=== PATIENT | male | born 1985 | race Two or more races ===

== ENCOUNTER 2020-10-09 15:14 | Emergency (ER) | payer SELFPAY ==
[~2020-10-09] VITALS: Ht 182.9 cm; Wt 127.7 kg
[2020-10-09 15:31] VITALS: BP 153/95
[2020-10-09] MEDS ORDERED: LIDOCAINE 1%/EPI 1:100,000 20 ML VIAL. INJ ONE (16:00)
[2020-10-09] MEDS ORDERED: DIPH,PERTUSS(ACELL),TET VAC/PF 0.5 ML SYRINGE. VAX IM ONE (16:00)
--- NOTE | 2020-10-09 17:47 | PHYS DOC ---
Past Medical History Past Surgical History: No Surgical History (BONI GARDNER APRN) Smoking Status: Current Every Day Smoker Alcohol Use: None (BONI GARDNER APRN) General Adult EDM: Chief Complaint: LACERATION/AVULSION HPI: HPI: Patient is a 34 year old male who presents to the ED today complaining of right knee laceration, patient states he was working in the basement and cut his right knee on a piece of metal. 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 [] Musculoskeletal: Denies back pain or joint pain. [] Integument: Reports right knee laceration Neurologic: Denies headache, focal weakness or sensory changes. [] Psychiatric: Denies depression or anxiety. [] (BONI GARDNER APRN) Heart Score: C/O Chest Pain: N/A Risk Factors: Risk Factors: DM, Current or recent (<one month) smoker, HTN, HLP, family history of CAD, obesity. Risk Scores: Score 0 - 3: 2.5% MACE over next 6 weeks - Discharge Home Score 4 - 6: 20.3% MACE over next 6 weeks - Admit for Clinical Observation Score 7 - 10: 72.7% MACE over next 6 weeks - Early Invasive Strategies (BONI GARDNER APRN) Current Medications: Current Medications Medications (Trade) Dose Ordered Sig/Katherin Start Time Stop Time Status Last Admin Dose Admin Diphtheria/ Tetanus/Acell Pertussis (ADACEL TDap SYRINGE) 0.5 ml ONCE ONCE 10/09/20 16:00 10/09/20 16:01 DC 10/09/20 16:03 0.5 ML Lidocaine/ Epinephrine (LIDOCAINE 1%-EPI 1:100,000 Multi-Dose) 20 ml 1X ONCE 10/09/20 16:00 10/09/20 16:01 DC 10/09/20 16:02 20 ML (BONI GARDNER HOME THEATER EXPERT) Allergies: Allergies: Allergies Coded Allergies Type Severity Reaction Last Updated Verified No Known Drug Allergies 10/09/20 No (BONI GARDNER APRN) Physical Exam: PE: Constitutional: Well developed, well nourished, no acute distress, non-toxic appearance. [] Skin: Right anterior knee with a laceration approximately 4 cm long. There is no obvious tendon involvement. Patient able to flex and extend the right knee with no difficulties. Range of motion intact to the right knee. +2 right pedal pulse. Cap refill less than 2 seconds the right lower extremity. Sensation intact to the right lower extremity. Back: No tenderness, no CVA tenderness. [] Extremities: No tenderness, no cyanosis, no clubbing, ROM intact, no edema. [] Neurologic: Alert and oriented X 3, normal motor function, normal sensory function, no focal deficits noted. [] Psychologic: Affect normal, judgement normal, mood normal. [] (BONI GARDNER APRN) Current Patient Data: Vital Signs: Vital Signs Date Time Temp Pulse Resp B/P (MAP) Pulse Ox O2 Delivery O2 Flow Rate FiO2 10/09/20 15:31 98.9 69 16 153/95 97 Room Air 98.9 (BONI GARDNER APRN) EKG: EKG: [] (BONI GARDNER APRN) Radiology/Procedures: Radiology/Procedures: Laceration/Wound Repair Laceration/Wound Repair : [] Wound Location: Right knee laceration Wound's Depth, Shape: Vertical Wound Explored: clean Irrigated w/ Saline (ccs): 250 Betadine Prep?: Yes Anesthesia: 1% of lidocaine with epinephrine Volume Anesthetic (ccs): Approximately 4 cc Wound Repaired With: Prolene Suture Size/Type: 4.0/interrupted sutures Number of Sutures: 8 sutures Progress wound was covered with nonstick dressing (BONI GARDNER APRN) Course & Med Decision Making: Course & Med Decision Making Pertinent Labs and Imaging studies reviewed. (See chart for details) This is a 34-year-old male patient with right knee laceration that was closed by me as noted in procedures. Tetanus updated. Wound care instructions and return precautions provided (BONI GARDNER APRN) Course & Med Decision Making I have reviewed and was available for consultation in the emergency department for this patient that was seen by midlevel provider. Agree with plan. Chin Pavon DO (CHIN PAVON DO) Nathan Disclaimer: Nathan Disclaimer: This electronic medical record was generated, in whole or in part, using a voice recognition dictation system. (BONI GARDNER APRN) Departure Departure Impression: Primary Impression: Laceration of right knee Qualified Codes: S81.011A - Laceration without foreign body, right knee, initial encounter Referrals: NO PCP (PCP) Follow-up with the ED in 7 days for suture removal Patient Instructions: Laceration Care, Adult, [id number] Additional Instructions: You have a laceration on the right knee that was closed with stitches. You can shower and wash the area once or twice a day. Do not soak the area. Please apply Neosporin to the area twice a day for 7 days. Please take Tylenol or Motrin as needed for pain. Please come back to the emergency room in 7 days for stitches to be removed BONI GARDNER APRN Oct 09, 2020 17:47 CHIN PAVON DO Oct 10, 2020 06:36
== END 2020-10-09 18:17 | disposition home or self-care (01) ==
LOC: ER 15:14
DX: S81.011A Laceration without foreign body, right knee, initial encounter (principal); F17.200 Nicotine dependence, unspecified, uncomplicated; Y28.8XXA Contact with other sharp object, undetermined intent, initial encounter; Y93.89 Activity, other specified; Y92.89 Other specified places as the place of occurrence of the external cause; Y99.8 Other external cause status
CPT/HCPCS: 12002; 90471; 90715; 99283; J3490